=== PATIENT | female | born 1985 | race Two or more races ===

== ENCOUNTER 2020-11-21 14:45 | Inpatient (IN) | payer OTHER ==
[~2020-11-21] VITALS: Ht 175.3 cm; Wt 71.2 kg
[2020-12-10] MEDS ORDERED: PRENATABS RX T1 EACH PO (21:44)
== END 2020-12-13 18:11 | disposition home or self-care (01) | DRG 807 ==
LOC: LDR 12-04 14:45 → SURG-SUITE 12-10 20:47
PROVIDERS: ADMIT Obstetrics & Gynecology; ATTEND Obstetrics & Gynecology
PROC: 4A1HXFZ Monitoring of Products of Conception, Cardiac Rhythm, External Approach (ICD-10-PCS; 2020-12-10)
PROC: 10E0XZZ Delivery of Products of Conception, External Approach (ICD-10-PCS; principal; 2020-12-11)
PROC: 0KQM0ZZ Repair Perineum Muscle, Open Approach (ICD-10-PCS; 2020-12-11)
DX: O70.1 Second degree perineal laceration during delivery (principal); Z37.0 Single live birth; O99.824 Streptococcus B carrier state complicating childbirth; Z3A.40 40 weeks gestation of pregnancy; Z20.822 Contact with and (suspected) exposure to COVID-19